=== PATIENT | male | born 1965 | race Caucasian/White ===

== ENCOUNTER 2020-07-02 22:42 | Emergency (ER) | payer BC, OTHER ==
[2020-07-02 22:47] VITALS: BP 154/92; PULSE 77; RESP 18; TEMP 98.3
[2020-07-02] MEDS ORDERED: SODIUM CHLORIDE 0.9% 1,000 ML IV STA ×2 (23:09)
[2020-07-02] MEDS ORDERED: ONDANSETRON 4 MG/2 ML VIAL IVP STA (23:09)
[2020-07-02] MEDS ORDERED: MORPHINE SULFATE 4 MG/ML SYRINGE IV STA (23:09)
[2020-07-02] MEDS ORDERED: KETOROLAC 15 MG/ML 1 ML VIAL IVP STA (23:11)
[2020-07-02] MEDS ORDERED: TAMSULOSIN 0.4 MG CAP.ER.24H PO STA (23:16)
[2020-07-02] MEDS ORDERED: ACET/COD 300 MG/30 MG STARTER PACK 6 TAB BTL PO STA (23:16)
[2020-07-02] MEDS ORDERED: IBUPROFEN 600 MG STARTER PACK 4 TAB BTL PO STA (23:16)
[2020-07-02] MEDS ORDERED: ONDANSETRON 4 MG ODT STARTER PACK 2 TAB BTL PO STA (23:18)
--- NOTE | 2020-07-02 23:20 | ED ---
Abdominal Pain HPI - General Chief Complaint: Abdominal Pain Stated Complaint: Kidney stone Time Seen by Provider: 07/02/20 22:51 Source: patient, RN notes reviewed, old records reviewed Mode of arrival: ambulatory Limitations: no limitations - History of Present Illness Initial Comments: 55 year male, esent to the ER today for complaints of difficultywith urinating and sudden onset of right flank pain. He reports he was having is having a obstructing kidney stone at this time sees had this happen before. He reports some pain radiates from the right flank into his groin. Patient reports that he's had episodes of nausea and vomiting when he attempted to urinate with the pain. Patient states that he's had no fevers or chills. - Related Data Previous Rx's Medication Instructions Recorded Ibuprofen [Motrin] 600 mg PO Q8HR PRN #20 tab 07/02/20 Ondansetron Odt [Zofran Odt] 4 mg PO Q8HR PRN #12 tab 07/02/20 Tamsulosin [Flomax] 0.4 mg PO DAILY #7 cap 07/02/20 Allergies Allergy/AdvReac Type Severity Reaction Status Date / Time No Known Allergies Allergy Verified 07/02/20 22:47 Review of Systems ROS Statement: Those systems with pertinent positive or pertinent negative responses have been documented in the HPI. ROS Other: All systems not noted in ROS Statement are negative. Past Medical History Additional Past Medical History / Comment(s): kidney stones History of Any Multi-Drug Resistant Organisms: None Reported Past Surgical History: Orthopedic Surgery Past Psychological History: No Psychological Hx Reported Smoking Status: Never smoker Past Alcohol Use History: Occasional Past Drug Use History: None Reported General Exam - General Exam Comments Initial Comments: alert and oriented 55 or-year-old male. No distress. Limitations: no limitations General appearance: alert, in no apparent distress Head exam: Present: atraumatic Eye exam: Present: normal appearance, PERRL, EOMI. Absent: scleral icterus, conjunctival injection, periorbital swelling ENT exam: Present: normal exam, mucous membranes moist Neck exam: Present: normal inspection. Absent: tenderness, meningismus, lymphadenopathy Respiratory exam: Present: normal lung sounds bilaterally Cardiovascular Exam: Present: regular rate, normal rhythm, normal heart sounds. Absent: systolic murmur, diastolic murmur, rubs, gallop, clicks GI/Abdominal exam: Present: soft, normal bowel sounds. Absent: distended, tenderness, guarding, rebound, rigid Extremities exam: Present: normal inspection, full ROM, normal capillary refill. Absent: tenderness, pedal edema, joint swelling, calf tenderness Back exam: Present: normal inspection Neurological exam: Present: alert, oriented X3, CN II-XII intact Psychiatric exam: Present: normal affect, normal mood Skin exam: Present: warm, dry, intact, normal color. Absent: rash Course Vital Signs 07/02/20 22:44 Temperature 98.3 F Pulse Rate 77 Respiratory 18 Rate Blood Pressure 154/92 O2 Sat by Pulse 96 Oximetry - Reevaluation(s) Reevaluation #1: 07/03/20 03:18 Patient went to urinate and he reports that he immediately felt pain relief after attempting to urinate. This was prior 2 IVs established he states he feels well to go home. He believes that he had passed the stone at that time. Medical Decision Making - Medical Decision Making 55-year-old male presents the ER today for onset of right flank pain dysuria starting this evening at 7 PM. Patient believes he is passing a kidney stone. When Patient went to attempt to leave a urine sample and he reports that he was able to urinate and felt an immediate pain relief. Is likely Patient passed a stone at this time. When he returned to the room he states he felt well and did not want to have any further pain medication or workup. Patient urinalysis was completed did show hematuria no sign of infection. He states he hasno pain but will be discharged at this time with Flomax and a starter pack pain medication in case he has any further pain when he returned home. I discussed return parameters and following up with primary care physician physician. - Lab Data Lab Results 07/02/20 Range/Units 23:19 Urine Color Yellow Urine Appearance Clear (Clear) Urine pH 6.0 (5.0-8.0) Ur Specific [place] 1.016 (1.001-1.035) Urine Protein Trace H (Negative) Urine Glucose (UA) Negative (Negative) Urine Ketones Negative (Negative) Urine Blood Moderate H (Negative) Urine Nitrite Negative (Negative) Urine Bilirubin Negative (Negative) Urine Urobilinogen <2.0 (<2.0) mg/dL Ur Leukocyte Esterase Negative (Negative) Urine RBC >182 H (0-5) /hpf Urine WBC 2 (0-5) /hpf Ur Squamous Epith Cells 2 (0-4) /hpf Hyaline Casts 6 H (0-2) /lpf Urine Mucus Moderate H (None) /hpf Disposition Clinical Impression: Kidney stone Disposition: HOME SELF-CARE Condition: Good Instructions (If sedation given, give patient instructions): Flank Pain (ED) Additional Instructions: Please use medication as discussed. Please follow up with family doctor if symptoms have not improved over the next two days. Please return to the emergency room if your symptoms increase or worsen or for any other concerns. Prescriptions: Tamsulosin [Flomax] 0.4 mg PO DAILY #7 cap Ibuprofen [Motrin] 600 mg PO Q8HR PRN #20 tab PRN Reason: Pain Ondansetron Odt [Zofran Odt] 4 mg PO Q8HR PRN #12 tab PRN Reason: Pain Is patient prescribed a controlled substance at d/c from ED?: No Referrals: None,Stated [Primary Care Provider] - 1-2 days Time of Disposition: 23:19
[2020-07-02 23:33] LABS: Appearance,Urine Clear (Clear); Bilirubin,Urine Negative (Negative); Blood,Urine Moderate (Negative); Color,Urine Yellow; Glucose,Urine (UA) Negative (Negative); Hyaline Casts,Urine 6 /lpf (0-2); Ketones,Urine Negative (Negative); Leukocyte Esterase,Urine Negative (Negative); Mucus,Urine Moderate /hpf; Nitrite,Urine Negative (Negative); Protein,Urine Trace (Negative); RBC,Urine >182 /hpf (0-5); Specific Gravity,Urine 1.016 (1.001-1.035); Squamous Epithelial Cell,Urine 2 /hpf (0-4); Urobilinogen,Urine <2.0 mg/dL (<2.0); WBC,Urine 2 /hpf (0-5)
== END 2020-07-02 23:29 | disposition home or self-care (01) ==
LOC: EC 22:42
DX: N20.0 Calculus of kidney (principal)
CPT/HCPCS: 81001; 99284; S0119

== ENCOUNTER → 2023-08-25 | Outpatient (CLI) | payer OTHER ==
--- NOTE | 2023-08-25 12:02 | XR ---
EXAMINATION TYPE: XR hand complete RT DATE OF EXAM: 08/25/2023 COMPARISON: NONE HISTORY: Pain TECHNIQUE: Three views are submitted. FINDINGS: Exam limited by overlying casting material. The osseous structures are intact. The joint spaces are preserved and there is no acute fracture or dislocation. Diffuse osteopenia. Mild arthropathy of the scaphotrapezial and first carpometacarpal j oint. A tiny bony density at the base of distal phalanx first digit is obscured by wrapping material. Correlate with point tenderness. Due to this IMPRESSION: 1. Limited exam demonstrates no definite acute fracture or dislocation if symptoms persist, follow-up study in 7 to 10 days would be suggested. See above.
--- NOTE | 2023-08-25 12:04 | XR ---
EXAMINATION TYPE: XR wrist complete RT DATE OF EXAM: 08/25/2023 COMPARISON: NONE HISTORY: Pain TECHNIQUE: Four views submitted. FINDINGS: Exam limited by overlying casting\wrapping material. The osseous structures are intact. The joint spaces are preserved and there is no acute fracture or dislocation. Mild arthropathy of the ischemic lesion in the first carpometacarpal joint. IMPRESSION: 1. Limited exam demonstrates no definite acute fracture or dislocation if symptoms persist, follow-up study in 7 to 10 days would be suggested
== END | disposition home or self-care (01) ==
LOC: RADXRMAIN 11:20
PROVIDERS: ATTEND Emergency Medicine
DX: S60.211A Contusion of right wrist, initial encounter (principal); S60.221A Contusion of right hand, initial encounter; X58.XXXA Exposure to other specified factors, initial encounter

== ENCOUNTER → 2023-09-04 | Outpatient (CLI) ==
--- NOTE | 2023-09-04 17:33 | XR ---
EXAMINATION TYPE: XR hand complete RT, XR wrist complete RT DATE OF EXAM: 09/04/2023 3:15 PM CLINICAL INDICATION:Male, 58 years old with history of S60.211D, S60.221D; COMPARISON: None TECHNIQUE: XR hand complete RT, XR wrist complete RT Frontal, lateral and oblique views were obtained . FINDINGS: Normal alignment of the visualized joints. No acute osseous pathology is identified. No e vidence of soft tissue swelling. Multifocal joint space narrowing and osteophyte formation are mild. IMPRESSION: 1. No acute osseous pathology. 2. 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
== END | disposition home or self-care (01) ==
LOC: RADXRMAIN 14:41
PROVIDERS: ATTEND Emergency Medicine
DX: S60.211D Contusion of right wrist, subsequent encounter (principal); S60.221D Contusion of right hand, subsequent encounter; M19.031 Primary osteoarthritis, right wrist; M19.041 Primary osteoarthritis, right hand

== ENCOUNTER → 2025-03-05 | Outpatient (CLI) | payer BC ==
[2025-03-05 14:17] LABS: Basophils % (A) 1.3 %; Eosinophils # (A) 0.27 X 10*3/uL (0.04-0.35); Eosinophils % (A) 3.6 %; HCT 45.9 % (39.6-50.0); HGB 14.2 g/dL (13.0-17.0); Lymphocytes # (A) 2.29 X 10*3/uL (0.90-5.00); Lymphocytes % (A) 30.1 %; MCH 29.8 pg (27.0-32.0); MCHC 30.9 g/dL (32.0-37.0); MCV 96.4 FL (80.0-97.0); Mean Platelet Volume 11.4 FL (9.5-12.2); Monocytes # (A) 0.69 X 10*3/uL (0.20-1.00); Monocytes % (A) 9.1 %; NRBC Per 100 WBC 0 X 10*3/uL (0.00-0.01); Neutrophils # (A) 4.23 X 10*3/uL (1.80-7.70); Neutrophils % (A) 55.6 %; Platelet Count 288 X 10*3/uL (140-440); RBC 4.76 X 10*6/uL (4.40-5.60); RDW 13.7 % (11.5-14.5)
[2025-03-05 14:45] LABS: Blood Urea Nitrogen 16.8 mg/dL (9.0-27.0); Chol/HDL Ratio 3.57 Ratio; Glucose 110 mg/dL (70-110); LDL Cholesterol,Calculated 101.2 mg/dL (0.0-131.0); VLDL Calculation 12.64 mg/dL (5.00-40.00)
[2025-03-05 14:46] LABS: ALT 23 U/L (10-49); AST 33 U/L (14-35); Albumin 4.1 g/dL (3.8-4.9); Albumin/Globulin Ratio 1.37 Ratio (1.60-3.17); Alkaline Phosphatase 82 U/L (41-126); Calcium 9.1 mg/dL (8.7-10.3); Carbon Dioxide 24.2 mmol/L (21.6-31.8); Chloride 107 mmol/L (96-109); Potassium 4.2 mmol/L (3.5-5.5); Sodium 143 mmol/L (135-145); Total Bilirubin 0.4 mg/dL (0.3-1.2); Total Protein 7.1 g/dL (6.2-8.2)
== END | disposition home or self-care (01) ==
LOC: LABWHC1 07:39
PROVIDERS: ATTEND Family Medicine
DX: I10 Essential (primary) hypertension (principal); Z79.899 Other long term (current) drug therapy
CPT/HCPCS: 36415; 80053; 80061; 83036; 84443; 85025